=== PATIENT | male | born 1965 | race Caucasian/White ===

== ENCOUNTER 2020-03-27 14:34 | Emergency (ER) | payer BC ==
[2020-03-27] MEDS ORDERED: ADENOSINE INJ/PF 6 MG/2 ML SDV IV ONE (14:51)
[2020-03-27] MEDS ORDERED: DILTIAZEM HCL INJ 25 MG/5 ML VIAL IV ONE ×2 (14:52→14:58)
[2020-03-27] MEDS ORDERED: DILTIAZEM HCL INJ 25 MG/5 ML VIAL ONE ×2 (14:52→14:58)
--- NOTE | 2020-03-27 15:29 | RADIOLOGY REPORT (SQ) ---
EXAM DESCRIPTION: CHEST SINGLE VIEW IMAGES COMPLETED DATE/TIME: 03/27/2020 3:20 pm REASON FOR STUDY: cp COMPARISON: None. EXAM PARAMETERS: NUMBER OF VIEWS: One view. TECHNIQUE: Single frontal radiographic view of the chest acquired. RADIATION DOSE: NA LIMITATIONS: None. FINDINGS: LUNGS AND PLEURA: No opacities, masses or pneumothorax. No pleural effusion. MEDIASTINUM AND HILAR STRUCTURES: No masses. Contour normal. HEART AND VASCULAR STRUCTURES: Heart normal in size. Normal vasculature. BONES: No acute findings. HARDWARE: None in the chest. OTHER: No other significant finding. IMPRESSION: NO ACUTE RADIOGRAPHIC FINDING IN THE CHEST. TECHNICAL DOCUMENTATION: JOB ID: [id number] 2010 [employer]- All Rights Reserved Reading location - IP/workstation name: [email or web address]
[2020-03-27 15:35] LABS: ABSOLUTE BASOPHILS # (AUTO) 0.1 10^3/uL (0.0-0.2); ABSOLUTE EOSINOPHILS # (AUTO) 0.3 10^3/uL (0.0-0.6); ABSOLUTE LYMPHOCYTES (AUTO) 3.8 10^3/uL (0.5-4.7); ABSOLUTE MONOCYTES (AUTO) 1.1 10^3/uL (0.1-1.4); ABSOLUTE NEUT (AUTO) 6.5 10^3/uL (1.7-8.2); BASOPHILS % (AUTO) 0.6 % (0-2); EOSINOPHILS % (AUTO) 2.7 % (0-6); HEMATOCRIT 48.8 % (37.9-51.0); HEMOGLOBIN 16.9 g/dL (13.5-17.0); LYMPHOCYTES % (AUTO) 32.4 % (13-45); MEAN CORPUSCULAR HEMOGLOBIN 30.2 pg (27.0-33.4); MEAN CORPUSCULAR HGB CONC 34.6 g/dL (32.0-36.0); MEAN CORPUSCULAR VOLUME 87 fl (80-97); MONOCYTES % (AUTO) 9.1 % (3-13); PLATELET COUNT 289 10^3/uL (150-450); RED CELL DISTRIBUTION WIDTH 13.4 % (11.5-14.0); SEGMENTED NEUTROPHILS % (AUTO) 55.2 % (42-78); TOTAL CELLS COUNTED % (AUTO) 100 %; WHITE BLOOD COUNT 11.7 10^3/uL (4.0-10.5)
--- NOTE | 2020-03-27 15:37 | ER Document Report ---
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 He took a shower and drove himself to the ER with his . Patient reports he has had similar symptoms for 23 years. He arrives with 161/131 blood pressure and heart rate at 184. Patient reports she used to take digoxin for 15 years 1-1/2 tablets. He has had no symptom since living here and [place] for 5 years. He does not have a manager marketing communications. Patient reports has had at least 4 bouts of SVT over the last 5 years. They always self resolved after self Valsalva. Patient weighs 287 pounds. He has multiple tattoos over his arms and a dragon heart on his left chest. Patient reports he quit smoking over 15 years ago but gained 150 pounds. TRAVEL OUTSIDE OF THE [place] IN LAST 30 DAYS: No - HPI Onset: Just prior to arrival Onset/Duration: Sudden Quality of pain: Achy Severity: Moderate Pain Level: 3 Associated symptoms: Chest pain Exacerbated by: Denies Relieved by: Denies Similar symptoms previously: Yes Recently seen / treated by doctor: No - Related Data Allergies/Adverse Reactions: No Known Allergies Allergy (Unverified 08/29/15 19:39) Past Medical History - General Information source: Patient - Social History Smoking Status: Former Smoker Cigarette use (# per day): No Chew tobacco use (# tins/day): No Smoking Education Provided: No Frequency of alcohol use: None Drug Abuse: None Lives with: Family Family History: Reviewed & Not Pertinent Patient has suicidal ideation: No Patient has homicidal ideation: No Past Surgical History: Reports: Hx Bowel Surgery - HERNIA, Hx Testicular Surgery - Vasectomy - Immunizations Hx Diphtheria, Pertussis, Tetanus Vaccination: No Review of Systems - Review of Systems Constitutional: Malaise EENT: No symptoms reported Cardiovascular: See HPI, Chest pain, Palpitations, Heart racing, Lightheaded Respiratory: No symptoms reported Gastrointestinal: No symptoms reported Genitourinary: No symptoms reported Male Genitourinary: No symptoms reported Musculoskeletal: No symptoms reported Skin: No symptoms reported Hematologic/Lymphatic: No symptoms reported Neurological/Psychological: No symptoms reported Physical Exam - Vital signs Vitals: Resp Pulse Ox 23 H 99 03/27/20 14:47 03/27/20 14:47 Interpretation: Hypertensive, Tachycardic - General General appearance: Appears well In distress: None - HEENT Head: Normocephalic, Atraumatic Eyes: Normal Pupils: PERRL Nasal: Normal Mouth/Lips: Normal Mucous membranes: Normal Pharynx: Normal Neck: Normal - Respiratory Respiratory status: No respiratory distress Chest status: Nontender Breath sounds: Normal Chest palpation: Normal - Cardiovascular Rhythm: Tachycardia Heart sounds: Normal auscultation Murmur: No - Abdominal Inspection: Normal Distension: No distension Bowel sounds: Normal Tenderness: Nontender Organomegaly: No organomegaly - Rectal Prostate: Other - deferred - Genitourinary Scrotum: Other - deferred - Back Back: Normal - Extremities General upper extremity: Normal inspection General lower extremity: Normal inspection - Neurological Neuro grossly intact: Yes Cognition: Normal Orientation: AAOx4 [place] Coma Scale Eye Opening: Spontaneous Shruti Coma Scale Verbal: Oriented Shruti Coma Scale Motor: Obeys Commands [place] Coma Scale Total: 15 Speech: Normal Motor strength normal: LUE, RUE, LLE, RLE Sensory: Normal - Psychological Associated symptoms: Normal affect - Skin Skin Temperature: Warm Skin Moisture: Dry Course - Vital Signs Vital signs: Temp Pulse Resp BP Pulse Ox 97.8 F 24 H 140/89 H 96 03/27/20 16:01 03/27/20 16:01 03/27/20 16:01 03/27/20 16:01 - Laboratory Result Diagrams: 03/27/20 14:29 03/27/20 14:29 Laboratory results interpreted by me: 03/27/20 03/27/20 03/27/20 14:29 14:29 14:29 WBC 11.7 H RBC 5.60 H Glucose 145 H Magnesium 2.4 H TSH 5.89 H - Diagnostic Test Radiology reviewed: Reports reviewed - EKG Interpretation by Me EKG shows normal: Sinus rhythm Rate: Tachycardia Rhythm: NSR - heart rate 181 Critical Care Note - Critical Care Note Comments: Dr. Cote was called at 1540 and he advises Coreg 3.1 twice daily and fol low-up with him in office outpatient. Patient's blood pressure was 140/89 with heart rate 93 and I will write him for Cardizem 120 SR. Take this until seen by Dr. Cote. Discharge - Discharge Clinical Impression: Tachycardia, TSH elevation Hypertension Qualifiers: Hypertension type: unspecified Qualified Code(s): I10 - Essential (primary) hypertension Condition: Good Disposition: HOME, SELF-CARE Additional Instructions: Follow-up with Dr. Cote manager marketing communications and with your personal doctor about your thyroid TSH being elevated. Avoid lifting bending or twisting encourage fluids Prescriptions: Diltiazem HCl [Cardizem Cd 120 mg Capsule] 120 mg PO DAILY #15 cap.sr.24h Carvedilol [Coreg 3.125 mg Tablet] 3.125 mg PO Q12 #20 tablet Forms: Return to Work Referrals: AUBREY COTE MD [ACTIVE PROVISIONAL STAFF] - Follow up as needed
[2020-03-27 15:48] LABS: ALBUMIN 4.7 g/dL (3.5-5.0); ALKALINE PHOSPHATASE 84 U/L (38-126); ANION GAP 11 (5-19); ASPARTATE AMINO TRANSFERASE 35 U/L (17-59); BILIRUBIN,DIRECT 0.1 mg/dL (0.0-0.4); BILIRUBIN,TOTAL 0.6 mg/dL (0.2-1.3); BLOOD UREA NITROGEN 19 mg/dL (7-20); CALCIUM 9.6 mg/dL (8.4-10.2); CARBON DIOXIDE 28 mmol/L (22-30); CHLORIDE 104 mmol/L (98-107); CREATINE KINASE 121 U/L (55-170); GLUCOSE 145 mg/dL (75-110); TOTAL PROTEIN 8.2 g/dL (6.3-8.2)
[2020-03-27 16:00] LABS: CREATINE KINASE MB 1.91 ng/mL (<4.55)
[2020-03-27 16:11] LABS: TROPONIN I < 0.012 ng/mL
[2020-03-27 17:00] VITALS: BP 144/92
--- NOTE | 2020-03-27 19:30 | EKG REPORT ---
SEVERITY:- BORDERLINE ECG - SINUS RHYTHM PROBABLE LEFT ATRIAL ABNORMALITY BORDERLINE RIGHT AXIS DEVIATION : Confirmed by: Andra Garcia MD 27-Mar-2020 19:30:02
--- NOTE | 2020-03-27 19:30 | EKG REPORT ---
SEVERITY:- ABNORMAL ECG - SUPRAVENTRICULAR TACHYCARDIA LEFT POSTERIOR FASCICULAR BLOCK REPOLARIZATION ABNORMALITY, PROB RATE RELATED : Confirmed by: Andra Garcia MD 27-Mar-2020 19:30:13
== END 2020-03-27 17:00 | disposition home or self-care (01) ==
LOC: ER 14:34
DX: R00.0 Tachycardia, unspecified (principal); R07.9 Chest pain, unspecified; R00.2 Palpitations; R53.81 Other malaise; I10 Essential (primary) hypertension; R79.89 Other specified abnormal findings of blood chemistry; Z87.19 Personal history of other diseases of the digestive system; R42 Dizziness and giddiness
CPT/HCPCS: 93005; 99285; 96374; 36415; 82553; 82550; 83735; 84443; 85025; 80053; 84484; 71045; 93010; J3490

== ENCOUNTER 2020-04-10 06:35 | Emergency (ER) | payer BC ==
[2020-04-10] MEDS ORDERED: ADENOSINE INJ/PF 6 MG/2 ML SDV IV ONE ×3 (06:42→06:54)
[2020-04-10] MEDS ORDERED: NORMAL SALINE 1000 ML 1,000 ML IV ONE (06:59)
[2020-04-10 07:04] LABS: ABSOLUTE BASOPHILS # (AUTO) 0.1 10^3/uL (0.0-0.2); ABSOLUTE EOSINOPHILS # (AUTO) 0.5 10^3/uL (0.0-0.6); ABSOLUTE LYMPHOCYTES (AUTO) 6.1 10^3/uL (0.5-4.7); ABSOLUTE MONOCYTES (AUTO) 1.7 10^3/uL (0.1-1.4); ABSOLUTE NEUT (AUTO) 7.4 10^3/uL (1.7-8.2); BASOPHILS % (AUTO) 0.5 % (0-2); EOSINOPHILS % (AUTO) 2.9 % (0-6); HEMATOCRIT 44.8 % (37.9-51.0); HEMOGLOBIN 15.8 g/dL (13.5-17.0); LYMPHOCYTES % (AUTO) 38.6 % (13-45); MEAN CORPUSCULAR HEMOGLOBIN 30.7 pg (27.0-33.4); MEAN CORPUSCULAR HGB CONC 35.3 g/dL (32.0-36.0); MEAN CORPUSCULAR VOLUME 87 fl (80-97); MONOCYTES % (AUTO) 11.1 % (3-13); PLATELET COUNT 302 10^3/uL (150-450); RED BLOOD COUNT 5.17 10^6/uL (4.35-5.55); RED CELL DISTRIBUTION WIDTH 13.1 % (11.5-14.0); SEGMENTED NEUTROPHILS % (AUTO) 46.9 % (42-78); TOTAL CELLS COUNTED % (AUTO) 100 %; WHITE BLOOD COUNT 15.7 10^3/uL (4.0-10.5)
[2020-04-10] MEDS ORDERED: DILTIAZEM HCL 60 MG TABLET PO ONE (07:12)
[2020-04-10 07:25] LABS: ALBUMIN 4.5 g/dL (3.5-5.0); ALKALINE PHOSPHATASE 81 U/L (38-126); ANION GAP 10 (5-19); ASPARTATE AMINO TRANSFERASE 41 U/L (17-59); BILIRUBIN,DIRECT 0.3 mg/dL (0.0-0.4); BILIRUBIN,TOTAL 0.9 mg/dL (0.2-1.3); BLOOD UREA NITROGEN 21 mg/dL (7-20); CALCIUM 9.2 mg/dL (8.4-10.2); CARBON DIOXIDE 29 mmol/L (22-30); CHLORIDE 102 mmol/L (98-107); GLUCOSE 98 mg/dL (75-110); POTASSIUM 3.7 mmol/L (3.6-5.0); TOTAL PROTEIN 7.5 g/dL (6.3-8.2)
--- NOTE | 2020-04-10 07:26 | RADIOLOGY REPORT (SQ) ---
EXAM DESCRIPTION: XR CHEST 1 VIEW COMPLETED DATE/TME: 04/10/2020 06:57 CLINICAL HISTORY: tachycardia COMPARISON: None. FINDINGS: Single frontal radiograph view of the chest. Cardiomediastinal silhouette: Normal size and contour. Lungs: No consolidation, pneumothorax, or pleural effusion. Bones: Degenerative endplate spondylosis of the spine. Leads overlie the chest. Upper abdomen: No abnormality identified. IMPRESSION: 1. No acute pulmonary process identified.
[2020-04-10 07:36] LABS: NT PRO BNP 36 pg/mL (<125)
[2020-04-10 07:43] LABS: TROPONIN I < 0.012 ng/mL
[2020-04-10 07:57] LABS: APPEARANCE,URINE CLEAR; BILIRUBIN,URINE NEGATIVE (NEGATIVE); COLOR,URINE STRAW; GLUCOSE, URINE NEGATIVE (NEGATIVE); KETONES,URINE NEGATIVE (NEGATIVE); LEUKOCYTE ESTERASE,URINE NEGATIVE (NEGATIVE); NITRITE,URINE NEGATIVE (NEGATIVE); PROTEIN,URINE NEGATIVE (NEGATIVE); URINE SPECIFIC GRAVITY 1.005; UROBILINOGEN,URINE NEGATIVE mg/dL (<2.0)
[2020-04-10 08:14] LABS: URINE AMPHETAMINES SCREEN NEGATIVE; URINE BARBITURATES SCREEN NEGATIVE; URINE BENZODIAZEPINES SCREEN NEGATIVE; URINE COCAINE SCREEN NEGATIVE; URINE MARIJUANA (THC) SCREEN NEGATIVE; URINE METHADONE SCREEN NEGATIVE; URINE PHENCYCLIDINE SCREEN NEGATIVE
--- NOTE | 2020-04-10 08:49 | ER Document Report ---
Entered by JOEY WELLS SCRIBE 04/10/20 0651 Acting as scribe for:DENNISE COX MD ED Cardiac - General Chief Complaint: Palpitations Stated Complaint: PALPITATIONS Mode of Arrival: Wheelchair Information source: Patient Notes: This 54 year old male patient with a history of SVT presents to the ED today with complaints of palpitations that started just prior to arrival. Patient states that he was standing at work and felt his heart racing suddenly. He admits that he missed his dose of Carvedilol last night. Patient was seen here about a month ago with the same complaint and was sent home with a prescription for Cardizem and Carvedilol. He is followed by Dr. Cote for cardiology. Denies any other complaints. TRAVEL OUTSIDE OF THE [place] IN LAST 30 DAYS: No - Related Data Allergies/Adverse Reactions: No Known Allergies Allergy (Unverified 08/29/15 19:39) Home Medications: carvedilol Past Medical History - General Information source: Patient, [facility] Records - Social History Smoking Status: Former Smoker Cigarette use (# per day): No Chew tobacco use (# tins/day): No Smoking Education Provided: No Frequency of alcohol use: Rare Drug Abuse: None Lives with: Spouse/Significant other Family History: Reviewed & Not Pertinent Patient has suicidal ideation: No Patient has homicidal ideation: No - Past Medical History Cardiac Medical History: Reports: Other - Hx SVT Past Surgical History: Reports: Hx Herniorrhaphy, Hx Testicular Surgery - Vasectomy - Immunizations Hx Diphtheria, Pertussis, Tetanus Vaccination: No Review of Systems - Review of Systems Constitutional: No symptoms reported EENT: No symptoms reported Cardiovascular: See HPI, Palpitations, Heart racing Respiratory: No symptoms reported Gastrointestinal: No symptoms reported Genitourinary: No symptoms reported Male Genitourinary: No symptoms reported Musculoskeletal: No symptoms reported Skin: No symptoms reported Hematologic/Lymphatic: No symptoms reported Neurological/Psychological: No symptoms reported -: Yes All other systems reviewed and negative Physical Exam - Vital signs Vitals: Temp Pulse Resp BP Pulse Ox 97.8 F 176 H 20 144/101 H 98 04/10/20 06:35 04/10/20 06:35 04/10/20 06:35 04/10/20 06:35 04/10/20 06:35 Interpretation: Hypertensive, Tachycardic - General General appearance: Alert, Anxious - HEENT Head: Normocephalic, Atraumatic Eyes: Normal Pupils: PERRL - Respiratory Respiratory status: No respiratory distress Chest status: Nontender Breath sounds: Normal Chest palpation: Normal - Cardiovascular Rhythm: Regular, Tachycardia Heart sounds: Normal auscultation, S1 appreciated, S2 appreciated Murmur: No Friction rub: No Gallop: None auscultated - Abdominal Inspection: Obese Distension: No distension Bowel sounds: Normal Tenderness: Nontender - Abdomen soft Organomegaly: No organomegaly - Back Back: Normal, Nontender - Extremities General upper extremity: Normal inspection General lower extremity: Normal inspection. No: Edema - Neurological Neuro grossly intact: Yes Orientation: AAOx4 [place] Coma Scale Eye Opening: Spontaneous Shruti Coma Scale Verbal: Oriented Shruti Coma Scale Motor: Obeys Commands [place] Coma Scale Total: 15 - Psychological Associated symptoms: Anxious - Skin Skin Temperature: Warm Skin Moisture: Dry Skin Color: Normal Course - Re-evaluation Re-evalutation: 04/10/20 09:32 Patient resting comfortably not showing any signs of distress. Patient is in a sinus rhythm at this time. 04/10/20 09:37 Case discussed with who is patient's child life specialist who was advised of what happened to patient this morning. Dr. Cote was able to review the EKGs and now will plan for ablative therapy for this SVT. 04/10/20 10:[address] Cote and patient patient is opted that he is not interested in ablative therapy for his arrhythmia. Patient prefers medical management. And per discussion with Dr. Cote the plan is to keep him on carvedilol until he can follow-up with his other child life specialist including the clinical operations specialist. Patient is to continue his monitoring of his cardiac rhythms as already prescribed. - Vital Signs Vital signs: Temp Pulse Resp BP Pulse Ox 97.8 F 176 H 21 H 153/84 H 96 04/10/20 06:35 04/10/20 06:35 04/10/20 10:31 04/10/20 10:31 04/10/20 10:31 04/10/20 09:32 Current vitals blood pressure 157/97 normal sinus rhythm rate of 8895% saturation pulse oximetry. - Laboratory Result Diagrams: 04/10/20 06:51 04/10/20 06:51 Laboratory results interpreted by me: 04/10/20 04/10/20 04/10/20 06:51 06:51 06:51 WBC 15.7 H Absolute Lymphs (auto) 6.1 H Absolute Monos (auto) 1.7 H BUN 21 H ALT 55 H TSH 5.90 H Urine Blood 04/10/20 07:35 WBC Absolute Lymphs (auto) Absolute Monos (auto) BUN ALT TSH Urine Blood SMALL H White blood cell count 15.7 no evidence of infection at this time. Urine is clear chest x-ray is negative no signs of any cellulitis. No signs of sore throat fever chills nausea vomiting diarrhea. Patient has a TSH of 5.9 which is elevated patient does not have hyper thyroidism mild elevation in ALT at 55 patient has a BUN of 21. - Diagnostic Test Radiology reviewed: Image reviewed, Reports reviewed Radiology results interpreted by me: 04/10/20 09:35 Chest x-ray shows no acute process no congestive heart failure. - EKG Interpretation by Me Additional EKG results interpreted by me: 04/10/20 09:35 Initial twelve-lead EKG on arrival 641 supraventricular tachycardia rate of 171 left posterior fascicular block noted and repolarization abnormality most likely rate related and right. Repeat after treatment EKG shows at x650 sinus tachycardia rate of 106 with some right axis deviation and minimal ST depression in the inferior leads. Discharge - Discharge Clinical Impression: Paroxysmal SVT (supraventricular tachycardia) Condition: Good Disposition: HOME, SELF-CARE Instructions: Paroxysmal Supraventricular Tachycardia ([facility]) Additional Instructions: Continue your same medications as you are taking and follow-up with your child life specialist as you already have medications and follow-up appointments already in place. There is no change in your medications at this time. I personally performed the services described in the documentation, reviewed and edited the documentation which was dictated to the scribe in my presence, and it accurately records my words and actions.
[2020-04-10 10:48] VITALS: BP 153/84
--- NOTE | 2020-04-11 08:44 | EKG REPORT ---
SEVERITY:- ABNORMAL ECG - SUPRAVENTRICULAR TACHYCARDIA REPOLARIZATION ABNORMALITY, PROB RATE RELATED : Confirmed by: Doc Henry MD 11-Apr-2020 08:43:39
--- NOTE | 2020-04-11 08:44 | EKG REPORT ---
SEVERITY:- BORDERLINE ECG - SINUS TACHYCARDIA RIGHT AXIS DEVIATION INFERIOR ISCHEMIA MINIMAL ST DEPRESSION, INFERIOR LEADS : Confirmed by: Doc Henry MD 11-Apr-2020 08:43:21
== END 2020-04-10 11:19 | disposition home or self-care (01) ==
LOC: ER 06:35
DX: I47.1 Supraventricular tachycardia (principal); R00.2 Palpitations
CPT/HCPCS: 93005; 99285; 96361; 96374; 36415; 83735; 84443; 85025; 80053; 81001; 84484; 80307; 83880; 71045; 93010; J7030; J0153